=== PATIENT | male | born 1960 | race Caucasian/White ===

== ENCOUNTER 2020-05-24 10:20 | Day surgery (SDC) | payer OTHER | END 2020-05-24 15:15 | disposition home or self-care (01) | LOC: AMB-ENDOS 10:20 | PROVIDERS: ATTEND Colon & Rectal Surgery | DX: K62.89 Other specified diseases of anus and rectum (principal); K64.8 Other hemorrhoids; Z12.11 Encounter for screening for malignant neoplasm of colon; Z12.12 Encounter for screening for malignant neoplasm of rectum; Z20.822 Contact with and (suspected) exposure to COVID-19 ==